=== PATIENT | female | born 1965 | race Caucasian/White ===

== ENCOUNTER 2021-05-28 08:53 | Outpatient (CLI) | payer BC | END 2021-05-28 08:54 | disposition home or self-care (01) | LOC: CSHMRI 08:53 | PROVIDERS: ATTEND Internal Medicine Gastroenterology | DX: R16.0 Hepatomegaly, not elsewhere classified (principal); R74.01 Elevation of levels of liver transaminase levels; K75.81 Nonalcoholic steatohepatitis (NASH); Z86.010 Personal history of colon polyps | CPT/HCPCS: 74183 ==